=== PATIENT | female | born 1965 | race Caucasian/White ===

== ENCOUNTER → 2017-04-20 | Outpatient (CLI) | payer BC ==
--- NOTE | 2017-04-20 19:30 | WWHP ---
[facility] - HISTORY AND PHYSICAL CHIEF COMPLAINT: Menstrual irregularity during the last 2 months. HPI: This is a 51-year-old, G1, P1 with an LMP of 04/08/2017. She states her periods were regular every month, lasting 3 days up until about 2 months ago. At that time, she missed her period and the period that followed was longer than usual. The next period after that was slightly early, but normal in length and flow. Her is status post vasectomy. She had her last Pap smear done in 09/[address] Kiran's office. She states her Pap smear was normal and she also had a mammogram done at [facility] at that time. She has been experiencing hot flashes over the past 2 years and this is mostly noticed at night. PAST MEDICAL HISTORY: Hypothyroidism and elevated cholesterol. MEDICATIONS: 1. Levothyroxine 112 mcg daily. 2. Pravastatin 40 mg daily. 3. Vitamin D 94815 units twice monthly. ALLERGIES: No known drug allergies. PAST SURGICAL HISTORY: Colonoscopy in 2013. PAST OB HISTORY: One vaginal delivery. 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 SOCIAL HISTORY: She smokes about 2 to 3 cigarettes per day and has about 4 to 8 alcohol-containing drinks per week. She denies drug use. She has been since 1982. She retired from [employer] and now works for an [employer]. FAMILY HISTORY: Maternal grandmother had breast cancer and maternal grandfather had colon cancer. Both parents have hypertension and elevated cholesterol. Her mother has coronary artery disease. REVIEW OF SYSTEMS: She thinks she has gained about 8 pounds over the last year. She denies respiratory, cardiac or GI problems. PHYSICAL EXAM: Blood pressure 147/70, height 5 feet 5 inches, weight 160 pounds, temperature 98, pulse 64. This is a well-developed, well-nourished white female who is alert and oriented x3, in no acute distress. HEENT: Within normal limits. NECK: Supple without mass or thyromegaly. CHEST AND LUNGS: Clear to auscultation. HEART: Regular rate and rhythm. BREASTS: Without mass or discharge. AXILLARY: Negative for adenopathy. BACK: Negative for CVA tenderness. ABDOMEN: Soft, nontender without palpable masses. PELVIC: Normal external genitalia. Cervix and vagina appear normal. There is no unusual discharge or blood noted in the vagina. There is no cervical motion tenderness. The uterus is mid to anterior, nongravid size and nontender. There are no palpable adnexal masses or tenderness. RECTAL: Deferred, since she states she had a rectal exam done earlier this year. EXTREMITIES: Nontender. IMPRESSION: 1. 51-year-old female with a recent menstrual irregularity. Probable perimenopause. 2. Mildly elevated blood pressure. PLAN: 1. Pap smear was deferred, since she states she had one done in 09/2016. We will obtain her Pap smear and mammogram records from Dr. Kiran. 2. Menstrual calendar was given to the patient. She will keep track of her menses. She was instructed to call if she is having greater menstrual irregularity, including frequent menstrual periods within the month, prolonged menses, heavy bleeding or other problems. 3. She will also call if she is having worsening vasomotor symptoms. 4. The patient was advised to have her blood pressure checked on a regular basis and she states she will do this and she will follow up with Dr. Kiran for blood pressure elevations. 5. The patient will have her thyroid tests done through Dr. Kirna as she has done in the past. She understands that if the thyroid is unregulated, this could cause menstrual irregularity as well. 6. She will return next year for her yearly exam and mammogram. 7. Total time spent with the patient 30 minutes. RUDY / OPAL: [id number] /
== END | disposition home or self-care (01) ==
DX: Z01.419 Encounter for gynecological examination (general) (routine) without abnormal findings (principal)

== ENCOUNTER → 2018-01-05 | Outpatient (CLI) | payer BC ==
[2018-01-05 08:40] VITALS: BP 154/72; TEMP 97; BMI 26.6
[2018-01-05 08:50] VITALS: PULSE 75
--- NOTE | 2018-01-05 09:03 | P.HPOB ---
History of Present Illness H&P Date: 01/05/18 Chief Complaint: The patient is here for her routine gynecologic exam and mammogram. This is a 52-year-old with an LMP of 12/05/2017. The patient is without gynecologic complaints. Menses are regular every month. Her 's status post vasectomy. She has had occasional slight hot flashes which are not very bothersome. Review of Systems The patient's weight has been stable over the last year. She denies respiratory , cardiac, or G.I. problems. 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 History of Any Multi-Drug Resistant Organisms: None Reported Additional Past Surgical History / Comment(s): Colonoscopy 2013. Past Psychological History: No Psychological Hx Reported Smoking Status: Current every day smoker (3 cigarettes per day) Past Alcohol Use History: Occasional (3 per week) Past Drug Use History: None Reported Additional History: She has been since 1982. She retired from [employer] and now works for an [employer]. - Past Family History Father Family Medical History: Hyperlipidemia, Hypertension Mother Family Medical History: Hyperlipidemia, Hypertension Additional Family Medical History / Comment(s): Maternal grandmother had breast cancer and maternal grandfather had colon cancer. Medications and Allergies Home Medications Medication Instructions Recorded Confirmed Type Ergocalciferol (Vitamin D2) cap PO WEEKLY 01/05/18 History [Vitamin D2] Levothyroxine Sodium [Synthroid] mcg PO DAILY 01/05/18 History Pravastatin Sodium [Pravachol] mg PO DAILY 01/05/18 History Allergies Allergy/AdvReac Type Severity Reaction Status Date / Time No Known Allergies Allergy Unverified 01/05/18 08:35 Exam - Vital Signs Vital signs: Vital Signs Temp Pulse BP 01/05/18 08:42 75 01/05/18 08:37 97.0 F L 154/72 Intake and Output 01/04/18 01/05/18 01/05/18 22:59 06:59 14:59 Other: Weight 72.575 kg Height 5'5", BMI 26.6. This is a well-developed well-nourished white female who is alert and oriented times 3 in no acute distress. HEENT: Within normal limits. NECK: Supple without mass or thyromegaly. CHEST AND LUNGS: Clear to auscultation. HEART: Regular rate and rhythm. BREASTS: Are without mass or discharge. AXILLARY EXAM: Negative for adenopathy. BACK: Negative for CVA tenderness. ABDOMEN: Soft, nontender, without palpable masses. PELVIC EXAM: Normal external genitalia. Cervix and vagina appear normal. There is no unusual discharge. There is no evidence of prolapse. The uterus is midposition, nongravid size and nontender. There are no palpable adnexal masses or tenderness. RECTAL EXAM: rectovaginal exam is negative for mass or tenderness and is negative for occult blood. EXTREMITIES: Nontender. IMPRESSION: 1. 52 year old female whose is status post vasectomy with normal gynecologic exam. 2. Elevated blood pressure. PLAN: 1. Pap smear was deferred since she had a normal one last year on 09/29/2016 ( [facility]). 2. Screening mammogram will be done today. 3. Osteoporosis prevention was discussed. 4. She has aware of her blood pressure elevation. I've recommended self blood pressure checks on a regular basis and she will follow up at her primary care physician's office if she continues to have blood pressure elevations. 5. Return in one year.
--- NOTE | 2018-01-05 13:39 | MM ---
Reason for exam: screening (asymptomatic). Last mammogram was performed 1 year and 1 month ago. History: Family history of breast cancer in maternal grandmother at age 40. Benign cyst aspiration of the right breast, 2009. Physical Findings: A clinical breast exam by your physician is recommended on an annual basis and results should be correlated with mammographic findings. MG Screening Mammo w CAD Bilateral CC and MLO view(s) were taken. Prior study comparison: November 24, 2016, mammogram, performed at [facility]. November 15, 2015, mammogram, performed at [facility]. There is an upper inner quadrant anterior depth oval mass with circumscribed borders similar to 2016. Benign appearing bilateral calcifications. No suspicious abnormality. No significant changes when compared with prior studies. ASSESSMENT: Benign, BI-RAD 2 RECOMMENDATION: Routine screening mammogram of both breasts in 1 year.
== END | disposition home or self-care (01) ==
LOC: WWCWWP 08:24
PROVIDERS: ATTEND Obstetrics & Gynecology
DX: Z12.31 Encounter for screening mammogram for malignant neoplasm of breast (principal)
CPT/HCPCS: 77067

== ENCOUNTER → 2019-05-09 | Outpatient (CLI) | payer BC ==
[2019-05-09 08:11] VITALS: BP 167/83; PULSE 74; RESP 18; TEMP 97.5; BMI 26.6
--- NOTE | 2019-05-09 08:48 | P.HPOB ---
History of Present Illness H&P Date: 05/09/19 Chief Complaint: The patient is here for her routine gynecologic exam and ma mmogram. This is a 53-year-old with an LMP of 12/07/2018. The patient is without gynecologic complaints. Her is status post vasectomy. Her menstrual periods have gotten slightly more infrequent and were about every 1-2 months until her LMP and now has gone about 5 months without a menstrual period. She has occasional hot flashes at night and can sometimes make it difficult to sle ep. She has not had many hot flashes during the day. Review of Systems The patient has gained 9 pounds over the last year. She denies respiratory, cardiac, or G.I. problems. She recently had a cold, but is pretty much gotten over it. 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 History of Any Multi-Drug Resistant Organisms: None Reported Additional Past Surgical History / Comment(s): Colonoscopy 2013. Past Psychological History: No Psychological Hx Reported Smoking Status: Current every day smoker (2 cigarettes per day) Past Alcohol Use History: Occasional (6 per week) Past Drug Use History: None Reported Additional History: She has been since 1982. She is retired from [employer] and now works for an [employer]. - Past Family History Father Family Medical History: Hyperlipidemia, Hypertension Mother Family Medical History: Hyperlipidemia, Hypertension Additional Family Medical History / Comment(s): Maternal grandmother had breast cancer and maternal grandfather had colon cancer. Medications and Allergies Home Medications Medication Instructions Recorded Confirmed Type Ergocalciferol (Vitamin D2) 1 cap PO WEEKLY 01/05/18 05/09/19 History [Vitamin D2] Levothyroxine Sodium [Synthroid] 25 mcg PO DAILY 01/05/18 05/09/19 History Pravastatin Sodium [Pravachol] 40 mg PO DAILY 01/05/18 05/09/19 History Allergies Allergy/AdvReac Type Severity Reaction Status Date / Time No Known Allergies Allergy Unverified 05/09/19 08:14 Exam Vital Signs Temp Pulse Resp BP Pulse Ox 05/09/19 08:06 97.5 F L 74 18 167/83 94 L Intake and Output 05/08/19 05/09/1905/09/19 22:59 06:59 14:59 Other: Weight 76.657 kg Height 5 feet 5 inches, weight 169 pounds, BMI 28.1. This is a well-developed well-nourished white female who is alert and oriented times 3 in no acute distress. HEENT: Within normal limits. NECK: Supple without mass or thyromegaly. CHEST AND LUNGS: Clear to auscultation. HEART: Regular rate and rhythm. BREASTS: Are without mass or discharge. AXILLARY EXAM: Negative for adenopathy. BACK: Negative for CVA tenderness. ABDOMEN: Soft, nontender, without palpable masses. PELVIC EXAM: Normal external genitalia. Cervix and vagina appear normal with minimal atrophy. There is no unusual discharge. There is no evidence of prolapse. The uterus is midposition, nongravid size and nontender. There are no palpable adnexal masses or tenderness. RECTAL EXAM: Rectovaginal exam is negative for mass or tenderness and is negative for occult blood. EXTREMITIES: Nontender. IMPRESSION: 1. 53-year-old perimenopausal female whose is status post vasectomy with normal gynecologic exam. 2. Recent oligomenorrhea and mild vasomotor symptoms consistent with perimen opause. 3. Elevated blood pressure. PLAN: 1. Pap smear was performed. 2. Self breast awareness was discussed with the patient. 3. Screening mammogram will be done today. 4. We have discussed her elevated blood pressure. The blood pressure has progressively increased at each of her 3 annual visits. I have asked her to check her blood pressure daily since she does have a blood pressure cuff. I have asked her to follow-up with Dr. Elissa oCrmier regarding elevated blood pressures. I have stressed the importance of keeping the blood pressure under good control. 5. He will keep a menstrual calendar and call if she is having menstrual problems or if she has bleeding after 12 months of amenorrhea. 6.Osteoporosis prevention was discussed. I have stressed the importance of adequate calcium, vitamin D and regular exercise. Recommended amounts of calcium and vitamin D were also discussed. 7. She was advised to return in one year for her annual well woman exam.
--- NOTE | 2019-05-10 13:35 | MM ---
Reason for exam: screening (asymptomatic). Last mammogram was performed 1 year and 4 months ago. History: Family history of breast cancer in maternal grandmother at age 40. Benign cyst aspiration of the right breast, 2009. Physical Findings: A clinical breast exam by your physician is recommended on an annual basis and results should be correlated with mammographic findings. MG 3D Screening Mammo W/Cad Bilateral CC and MLO view(s) were taken. Prior study comparison: January 05, 2018, bilateral MG screening mammo w CAD. November 24, 2016, mammogram, performed at [facility]. The breast tissue is heterogeneously dense. This may lower the sensitivity of mammography. There are benign appearing round dystophic calcifications bilaterally. There is chronic nodularity in the right breast decreased in size from 2018. There is no new dominant lesion. ASSESSMENT: Benign, BI-RAD 2 RECOMMENDATION: Routine screening mammogram of both breasts in 1 year.
== END | disposition home or self-care (01) ==
LOC: WWCWWP 07:53
PROVIDERS: ATTEND Obstetrics & Gynecology
DX: Z12.31 Encounter for screening mammogram for malignant neoplasm of breast (principal)
CPT/HCPCS: 77063; 77067

== ENCOUNTER 2020-04-26 06:12 | Day surgery (SDC) | payer BC ==
[2020-04-23 09:51] VITALS: BMI 27.8
[~2020-04-26 06:12] MED LIST: LACTATED RINGERS 1,000 ML IV SCH; LIDOCAINE 1% (10MG/ML) FOR IV START INTRADERMA PRN
[2020-04-26 06:41] VITALS: RESP 18; TEMP 97.5
[2020-04-26] MEDS ORDERED: LACTATED RINGERS 1,000 ML IV ONE (06:42)
[2020-04-26] MEDS ORDERED: PROPOFOL 10 MG/ML 20 ML VIAL IV ONE (07:13)
--- NOTE | 2020-04-26 07:14 | P.GSHP ---
History of Present Illness H&P Date: 04/26/20 Chief Complaint: History of colonic polyps This 54-year-old female presents today for colonoscopy. Patient's. History of colon polyps. She denies any significant GI complaint. Past Medical History Past Medical History: Hyperlipidemia, Thyroid Disorder Additional Past Medical History / Comment(s): Hypothyroid. History of Any Multi-Drug Resistant Organisms: None Reported Additional Past Surgical History / Comment(s): Colonoscopy 2013. Past Anesthesia/Blood Transfusion Reactions: No Reported Reaction Past Psychological History: No Psychological Hx Reported Smoking Status: Current every day smoker Past Alcohol Use History: Occasional Additional Past Alcohol Use History / Comment(s): Has been smoking 20 yrs, 3 cigarettes daily. Past Drug Use History: Marijuana Additional Drug Use History / Comment(s): Occasional use of Marijuana. Aware no use 24 hrs prior to procedure. - Past Family History Father Family Medical History: Hyperlipidemia, Hypertension Mother Family Medical History: Hyperlipidemia, Hypertension Additional Family Medical History / Comment(s): Maternal grandmother had breast cancer and maternal grandfather had colon cancer. Medications and Allergies Home Medications Medication Instructions Recorded Confirmed Type Ergocalciferol (Vitamin D2) 1 cap PO Q30D 01/05/18 04/23/20 History [Vitamin D2] Pravastatin Sodium [Pravachol] 40 mg PO DAILY 01/05/18 04/23/20 History Levothyroxine Sodium 112 mcg PO DAILY 04/23/20 04/23/20 History Multivitamins, Thera [Multivitamin 1 tab PO DAILY 04/23/20 04/23/20 History (formulary)] Allergies Allergy/AdvReac Type Severity Reaction Status Date / Time No Known Allergies Allergy Unverified 04/23/20 09:38 Surgical - Exam Vital Signs Temp Pulse Resp BP Pulse Ox 97.5 F L 78 18 172/78 98 04/26/20 06:40 04/26/20 06:40 04/26/20 06:40 04/26/20 06:40 04/26/20 06:40 - General well developed, well nourished, no distress - Eyes PERRL - ENT normal pinna - Neck no masses - Respiratory normal expansion - Cardiovascular Rhythm: regular - Abdomen Abdomen: soft, non tender Assessment and Plan Assessment: History of colon polyps. We'll perform colonoscopy.
--- NOTE | 2020-04-26 07:33 | P.OP ---
Date of Procedure: 04/26/20 Preoperative Diagnosis: History of colon polyps Postoperative Diagnosis: Rectal polyp Procedure(s) Performed: Colonoscopy Anesthesia: MAC Surgeon: Magdaleno Meyer Pathology: other (Rectal polyp) Condition: stable Disposition: PACU Description of Procedure: The patient's placed on the endoscopy table in the lateral position. She received IV sedation. Digital rectal exam is performed which revealed noted. Flexible colonoscope was then placed patient anus passed throughout the entire colon. The ileocecal valve was visually's. The cecum, ascending and transverse colon appeared normal. Scope was then brought back the descending colon. This appeared normal. Scope scope was brought back and; there was diverticular changes noted. Scope back the rectum and a small hyperplastic polyp was removed with a cold forcep. Scope was withdrawn for patient.
[2020-04-26 07:53] VITALS: BP 163/95; PULSE 53
== END 2020-04-26 08:06 | disposition home or self-care (01) ==
LOC: ORWHC2ENDO 06:12
PROVIDERS: ATTEND Surgery
DX: Z12.11 Encounter for screening for malignant neoplasm of colon (principal); K62.1 Rectal polyp; K57.30 Diverticulosis of large intestine without perforation or abscess without bleeding; Z86.010 Personal history of colon polyps; E03.9 Hypothyroidism, unspecified; E78.5 Hyperlipidemia, unspecified; F17.210 Nicotine dependence, cigarettes, uncomplicated; Z98.890 Other specified postprocedural states; Z82.49 Family history of ischemic heart disease and other diseases of the circulatory system; Z80.0 Family history of malignant neoplasm of digestive organs; Z80.3 Family history of malignant neoplasm of breast; Z79.899 Other long term (current) drug therapy; Z79.890 Hormone replacement therapy
CPT/HCPCS: 88305; 45380; J2704

== ENCOUNTER → 2020-11-14 | Outpatient (CLI) | payer BC ==
[2020-11-14 13:20] VITALS: BP 165/82; PULSE 78; TEMP 98.1
--- NOTE | 2020-11-14 13:42 | P.GSHP ---
History of Present Illness H&P Date: 11/14/20 Chief Complaint: Radiographic abnormality right breast Elmira is a 55-year-old white female who had a routine screening mammogram performed on . No lesions of concern were noted in the left breast. However in the right breast there was a rounded density which was more apparent than on prior exams. An ultrasound was recommended. An ultrasound was performed and a 1.2 cm lesion was noted for which core biopsy was recommended. The patient does not feel anything of concern in either breast. She is not complaining of any nipple discharge or skin changes. She does not report any recent trauma or infection in the breast. She's never had any surgery to the breast. The cyst aspirated in her right breast approximately 10 years ago. This was in the same vicinity. The lesion is seen on mammogram at this time. She is not complaining of breast pain at this time. Caffeine: 1/2 cup coffee/day nicotine: 3 cig./day chocolate: occasional Family History: maternal grandmother: breast cancer in her 40's maternal aunt: breast cancer in her 50's maternal grandfather: colon cancer Hormonal History: menarche: 11 , age at : 21, breast fed: no menopause: 54 BCP: no hormones: no used clomid to get for her daughter Surgical history: [place] teeth Medical history: Hypothyroid High cholesterol Social history: Nicotine: 3 cigarettes per day Alcohol: 4 times/week; rum drugs: none - Constitutional Constitutional: Denies chills, Denies fever - EENT Eyes: denies blurred vision, denies pain Ears: deny: decreased hearing, tinnitus Ears, nose, mouth and throat: Denies headache, Denies sore throat - Breasts Breasts: bilateral: as per HPI - Cardiovascular Cardiovascular: Denies chest pain, Denies shortness of breath - Respiratory Respiratory: Denies cough, Denies 7 - Gastrointestinal Gastrointestinal: Denies abdominal pain, Denies diarrhea, Denies nausea, Denies vomiting - Genitourinary (Female) Genitourinary: Denies dysuria, Denies hematuria - Menstruation Menstruation: Reports postmenopausal - Musculoskeletal Musculoskeletal: Denies myalgias - Integumentary Integumentary: Denies pruritus, Denies rash - Neurological Neurological: Denies numbness, Denies weakness - Psychiatric Psychiatric: Denies anxiety, Denies depression - Endocrine Comment: hypothyroid - Hematologic/Lymphatic Comment: none - Allergic/Immunologic Allergic/Immunologic: Reports seasonal allergies Past Medical History Past Medical History: Hyperlipidemia, Thyroid Disorder Additional Past Medical History / Comment(s): Hypothyroid. History of Any Multi-Drug Resistant Organisms: None Reported Additional Past Surgical History / Comment(s): Colonoscopy 2013. Past Anesthesia/Blood Transfusion Reactions: No Reported Reaction Past Psychological History: No Psychological Hx Reported Smoking Status: Current every day smoker Past Alcohol Use History: Occasional Additional Past Alcohol Use History / Comment(s): Has been smoking 20 yrs, 3 cigarettes daily. Past Drug Use History: Marijuana Additional Drug Use History / Comment(s): Occasional use of Marijuana. Aware no use 24 hrs prior to procedure. - Past Family History Father Family Medical History: Hyperlipidemia, Hypertension Mother Family Medical History: Hyperlipidemia, Hypertension Additional Family Medical History / Comment(s): Maternal grandmother had breast cancer and maternal grandfather had colon cancer. Medications and Allergies Home Medications Medication Instructions Recorded Confirmed Type Ergocalciferol (Vitamin D2) 1 cap PO Q30D 01/05/18 11/14/20 History [Vitamin D2] Pravastatin Sodium [Pravachol] 40 mg PO DAILY 01/05/18 11/14/20 History Levothyroxine Sodium 112 mcg PO DAILY 04/23/20 11/14/20 History Multivitamins, Thera [Multivitamin 1 tab PO DAILY 04/23/20 11/14/20 History (formulary)] Allergies Allergy/AdvReac Type Severity Reaction Status Date / Time No Known Allergies Allergy Unverified 11/14/20 13:15 Surgical - Exam Vital Signs Temp Pulse BP Pulse Ox 98.1 F 78 165/82 96 11/14/20 13:16 11/14/20 13:16 11/14/20 13:16 11/14/20 13:16 BMI 29.2 - General well developed, well nourished, no distress - Eyes normal ocular movement - ENT normal pinna, normal nares - Neck no masses, trachea midline - Respiratory normal expansion, normal respiratory effort, clear to auscultation - Cardiovascular Rhythm: regular Heart Sounds: normal: S1, S2 - Abdomen Abdomen: soft - Integumentary normal turgor - Neurologic no disoriented, no combative - Musculoskeletal normal gait - Psychiatric oriented to time, oriented to person, oriented to place, speech is normal, memory intact breast exam: BRA: 38D inspection: Bilateral grade 2/3 ptosis Palpation: Right breast: Multiple positional exam fibrocystic changes, no dominant masses or nodules of concern, particularly attention paid to the 1 o'clock position no discrete lumps or masses noted Right axilla: No adenopathy of concern Left breast: Multi-positional exam fibrocystic changes no dominant masses or nodules of concern Left axilla: No adenopathy of concern Results Mammogram and ultrasound reviewed with Dr. Zuniga Assessment and Plan Assessment: Impression: 1. Fibrocystic breast changes 2. Abnormal right breast mammogram/ultrasound 3. High cholesterol 4. Hypothyroidism 5. Positive family history of breast cancer Plan: 1. Right breast ultrasound-guided core biopsy/aspiration 2. Follow-up after biopsy CC: Dr. Dodson, Dr. Kiran
== END | disposition home or self-care (01) ==
LOC: WWCWWP 12:50
PROVIDERS: ATTEND Surgery
DX: N60.11 Diffuse cystic mastopathy of right breast (principal); N60.12 Diffuse cystic mastopathy of left breast; R92.8 Other abnormal and inconclusive findings on diagnostic imaging of breast; E03.9 Hypothyroidism, unspecified; E78.00 Pure hypercholesterolemia, unspecified; F17.210 Nicotine dependence, cigarettes, uncomplicated; Z80.3 Family history of malignant neoplasm of breast; E78.5 Hyperlipidemia, unspecified

== ENCOUNTER → 2020-11-27 | Day surgery (SDC) | payer BC ==
[2020-11-27 07:16] VITALS: RESP 16
[2020-11-27 08:28] VITALS: BP 159/89; PULSE 69; TEMP 98.3
--- NOTE | 2020-11-27 11:12 | USB ---
EXAMINATION TYPE: US biopsy breast VAD RT, MG diagnostic mammo RT wo CAD DATE OF EXAM: 11/27/2020 CLINICAL HISTORY: R92.8 ABN MAMMO. TECHNIQUE: Ultrasound guided core biopsy of right 1:00 breast. COMPARISON: NONE FINDINGS: The procedure of ultrasound guided core biopsy was explained to the patient. Benefits, alt ernatives, and risks were discussed. An informed consent was then obtained. The patient was placed in supine positioning for imaging and for the procedure. The overlying skin w as prepped and draped in usual sterile fashion. Lidocaine buffered with bicarbonate was used as anes thetic into the skin and subcutaneous tissue up to area of concern in the right 1:00 breast. A alvino was made with surgical scalpel. Under ultrasound guidance, a 12-gauge vacuum assisted biopsy gun device was used to obtain 4 core antoine ples. Following this, a biopsy clip was left in lesion. The patient tolerated the procedure well without any immediate complication. The patient was kept in the radiology department for short stay after the procedure and then discharged home in stable condi tion. IMPRESSION: Successful, uncomplicated ultrasound guided core biopsy of area of concern in the right 1 :00 breast, full pathology results to follow.
== END ==
LOC: RADUSWWP 07:04
PROVIDERS: ATTEND Surgery
DX: N60.11 Diffuse cystic mastopathy of right breast (principal); N62 Hypertrophy of breast; R92.0 Mammographic microcalcification found on diagnostic imaging of breast
CPT/HCPCS: 88305; 77065; 19083; A4648; J2001

== ENCOUNTER → 2020-12-05 | Outpatient (CLI) | payer BC ==
[2020-12-05 08:30] VITALS: BP 140/87; PULSE 86; RESP 18; TEMP 98.3
--- NOTE | 2020-12-05 08:52 | P.PN ---
Subjective Progress Note Date: 12/05/20 Principal diagnosis: Fibrocystic breast changes Elmira is a 55-year-old white female status post ultrasound-guided core biopsy of the right breast on 5520. Pathology revealed fibrocystic change with fibrosis, attenuated cyst wall with inflammation and scar and focal foreign body type inflammatory reaction. Focal mild usual ductal hyperplasia was present. Focal microcalcification identified. The graft of the ultrasound core biopsy was reviewed with Dr. Greer from radiology. It was felt that the needle went directly into the lesion of concern. This was consistent with a concordant diagnosis. The patient tolerated the procedure without difficulty. She did develop some mild ecchymosis. Objective - Vital Signs Vital signs: Vital Signs Temp 98.3 F 12/05/20 08:28 Pulse 86 12/05/20 08:28 Resp 18 12/05/20 08:28 BP 140/87 12/05/20 08:28 Pulse Ox 98 12/05/20 08:28 Intake & Output 12/04/20 12/05/20 12/05/20 18:59 06:59 18:59 Weight 80.739 kg - Constitutional General appearance: Present: average body habitus - EENT Eyes: Present: EOMI ENT: Present: hearing grossly normal - Respiratory Respiratory: bilateral: CTA - Cardiovascular Rhythm: regular Heart sounds: normal: S1, S2 - Integumentary Integumentary Comment(s): Examination of the biopsy site reveals mild ecchymosis no evidence of infection or hematoma Assessment and Plan Assessment: Impression/plan: 1. Patient status post ultrasound-guided core biopsy right breast pathology benign fibrocystic change Plan: 1. Repeat right breast mammogram and ultrasound in 6 months with physician exam at that time CC: Dr. Ivory Agrawal
== END ==
LOC: WWCWWP 08:21
PROVIDERS: ATTEND Surgery
DX: N60.11 Diffuse cystic mastopathy of right breast (principal); F17.200 Nicotine dependence, unspecified, uncomplicated

== ENCOUNTER → 2021-06-10 | Outpatient (CLI) | payer BC ==
[2021-06-10 09:26] VITALS: BP 147/88; PULSE 83; RESP 16; TEMP 98.2
--- NOTE | 2021-06-10 10:03 | P.HPOB ---
History of Present Illness H&P Date: 06/10/21 Chief Complaint: The patient is here for her routine gynecologic exam. This is a 55-year-old with an LMP of 2018. She is without gynecologic complaints and denies an post menopausal bleeding. Hot flashes have been minimal and not bothersome. The patient had an abnormal mammogram last year and underwent a right breast biopsy in November 2020 which was benign. She was scheduled for a right breast ultrasound with diagnostic mammogram today, but she was not aware that that was scheduled for before this appointment. She will be rescheduled. Review of Systems The patient has gained 10 pounds over the last year. She denies respiratory, cardiac, or G.I. problems. Past Medical History Past Medical History: Hyperlipidemia, Thyroid Disorder Additional Past Medical History / Comment(s): Hypothyroid. 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 History of Any Multi-Drug Resistant Organisms: None Reported Additional Past Surgical History / Comment(s): Colonoscopy 2019(next after 2yr). Past Anesthesia/Blood Transfusion Reactions: No Reported Reaction Past Psychological History: No Psychological Hx Reported Smoking Status: Current every day smoker (2-3 cigarettes per day) Past Alcohol Use History: Occasional (6 per week) Additional Past Alcohol Use History / Comment(s): Has been smoking 20 yrs, 3 cigarettes daily. Past Drug Use History: None Reported Additional History: She has been since 1982. 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 - Past Family History Father Family Medical History: Hyperlipidemia, Hypertension Mother Family Medical History: Hyperlipidemia, Hypertension Additional Family Medical History / Comment(s): Maternal grandmother had breast cancer and maternal grandfather had colon cancer. Medications and Allergies Home Medications Medication Instructions Recorded Confirmed Type Ergocalciferol (Vitamin D2) 1 cap PO Q30D 01/05/18 06/10/21 History [Vitamin D2] Pravastatin Sodium [Pravachol] 80 mg PO DAILY 01/05/18 06/10/21 History Levothyroxine Sodium 112 mcg PO DAILY 04/23/20 06/10/21 History Multivitamins, Thera [Multivitamin 1 tab PO DAILY 04/23/20 06/10/21 History (formulary)] Allergies Allergy/AdvReac Type Severity Reaction Status Date / Time No Known Allergies Allergy Verified 06/10/21 09:19 Exam Vital Signs Temp Pulse Resp BP Pulse Ox 06/10/21 09:20 98.2 F 83 16 147/88 99 Intake and Output 06/09/21 06/10/21 06/10/21 22:59 06:59 14:59 Other: Weight 81.193 kg Height 5 feet 5 inches, weight 179 pounds, BMI 29.8. This is a well-developed well-nourished white female who is alert and oriented times 3 in no acute distress. HEENT: Within normal limits. NECK: Supple without mass or thyromegaly. CHEST AND LUNGS: Clear to auscultation. HEART: Regular rate and rhythm. BREASTS: Are without mass or discharge. AXILLARY EXAM: Negative for adenopathy. BACK: Negative for CVA tenderness. ABDOMEN: Soft, nontender, without palpable masses. PELVIC EXAM: Normal external genitalia with minimal atrophy. Cervix and vagina appear normal with minimal atrophy. There is no unusual discharge. There is no evidence of prolapse. The uterus is midposition, nongravid size and nontender. There are no palpable adnexal masses or tenderness. RECTAL EXAM: Rectovaginal exam is negative for mass or tenderness and is negative for occult blood. EXTREMITIES: Nontender. IMPRESSION: 1. 55-year-old menopausal female with normal gynecologic exam. 2. Previous abnormal mammogram which did require a right breast biopsy done in November 2020 which showed benign fibrocystic changes. PLAN: 1. Pap smear cotest was performed. 2. Self breast awareness was discussed with the patient. We have also discussed symptoms associated with inflammatory breast cancer. 3. She is due for a diagnostic right mammogram with right breast ultrasound. This was rescheduled for approximately 2 weeks. The patient has an order slip for this. 4. Osteoporosis prevention was discussed. I have stressed the importance of adequate calcium, vitamin D and regular exercise. Recommended amounts of calcium and vitamin D were also discussed. 5. She has completed her Covid vaccination series. 6. She was advised to return in one year for her annual well woman exam.
--- NOTE | 2021-06-18 10:52 | P.PN ---
Progress Note - Text Progress Note Date: 06/18/21 OUTPATIENT FOLLOW-UP NOTE TEST(S)/RESULTS: Test results from 06/10/2021 include negative Pap smear and negative high risk HPV testing. METHOD OF NOTIFICATION: The patient was notified by phone. PATIENT COMMENTS: Patient states that her right-sided diagnostic mammogram and ultrasound is scheduled for 07/11/2021. DIAGNOSIS: Negative Pap smear cotest. DISCUSSION: PLAN: She was advised to return in one year for her annual well woman exam.
== END | disposition home or self-care (01) ==
LOC: WWCWWP 09:10
PROVIDERS: ATTEND Obstetrics & Gynecology
DX: Z53.9 Procedure and treatment not carried out, unspecified reason (principal)

== ENCOUNTER → 2021-07-11 | Outpatient (CLI) | payer BC ==
--- NOTE | 2021-07-11 14:10 | MM ---
Reason for exam: additional evaluation requested from prior study. Last mammogram was performed 7 months ago. History: Patient is postmenopausal. Family history of breast cancer in maternal aunt and breast cancer in maternal grandmother at age 40. Benign US biopsy breast VAD RT of the right breast, November 27, 2020. Benign cyst aspiration of the right breast, 2009. Physical Findings: Nurse did not find any significant physical abnormalities on exam. MG 3D Diag Mammo W/Cad RT CC and MLO view(s) were taken of the right breast. Prior study comparison: November 27, 2020, right breast MG diagnostic mammo RT wo CAD. May 09, 2019, bilateral MG 3d screening mammo w/cad. The breast tissue is heterogeneously dense. This may lower the sensitivity of mammography. There are benign appearing round calcifications in the right breast. Previous mammotome biopsy in the right breast. There is no discrete abnormality. These results were verbally communicated with the patient and result sheet given to the patient on 07/11/21. ASSESSMENT: Benign, BI-RAD 2 RECOMMENDATION: Follow-up diagnostic mammogram of both breasts in 5 months. Back on schedule for November 2021.
--- NOTE | 2021-07-11 14:12 | USB ---
Reason for exam: follow-up at short interval from prior study. History: Patient is postmenopausal. Family history of breast cancer in maternal aunt and breast cancer in maternal grandmother at age 40. Benign US biopsy breast VAD RT of the right breast, November 27, 2020. Benign cyst aspiration of the right breast, 2009. US Breast Limited RT Right limited breast ultrasound including focal area of concern, retroareolar and axilla demonstrates a 6 x 6 x 6mm lobular, solid, hypoechoic lesion at 1 o'clock, previous biopsy/smaller in size, biopsy proven benign. These results were verbally communicated with the patient and result sheet given to the patient on 07/11/21. ASSESSMENT: Benign, BI-RAD 2 RECOMMENDATION: Follow-up diagnostic mammogram of both breasts in 5 months. Back on schedule for November 2021.
== END | disposition home or self-care (01) ==
LOC: RADMAMWWP 12:46
PROVIDERS: ATTEND Surgery
DX: R92.8 Other abnormal and inconclusive findings on diagnostic imaging of breast (principal)
CPT/HCPCS: 77061; 77065

== ENCOUNTER → 2021-08-14 | Outpatient (CLI) | payer BC ==
[2021-08-14 16:26] VITALS: BP 149/86; PULSE 71; RESP 16; TEMP 98.5
--- NOTE | 2021-08-14 16:37 | P.PN ---
Subjective Progress Note Date: 08/14/21 Principal diagnosis: Fibrocystic breast changes Elmira is a 56-year-old white female [place] [address]. No lesions of concern were noted in the left breast. However in the right breast there was a rounded density which was more apparent than on prior exams. An ultrasound was recommended. An ultrasound was performed and a 1.2 cm lesion was noted for which core biopsy was recommended. An ultrasound core biopsy was performed on 5521. This revealed fibrocystic change with fibrosis, attenuated cyst wall with inflammation and scar and focal foreign body type of inflammatory reaction. This was felt to be benign and concordant. Repeat radiographic studies of the right breast in 6 months were recommended. The patient on [id number] underwent a right breast mammogram and right breast ultrasound. This was felt to be benign BIRADS 2. Follow-up mammogram of both breasts and 5 months was recommended. The patient does not feel anything of concern in either breast. She is not complaining of any nipple discharge or skin changes. She does not report any recent trauma or infection in the breast. She's never had any surgery to the breast. The cyst aspirated in her right breast approximately 10 years ago. This was in the same vicinity. She is not complaining of breast pain at this time. Caffeine: 1/2 cup coffee/day nicotine: 3 cig./day chocolate: occasional Family History: maternal grandmother: breast cancer in her 40's maternal aunt: breast cancer in her 50's maternal grandfather: colon cancer Hormonal History: menarche: 11 , age at : 21, breast fed: no menopause: 54 BCP: no hormones: no used clomid to get for her daughter Surgical history: Boswell teeth Medical history: Hypothyroid High cholesterol Social history: Nicotine: 3 cigarettes per day Alcohol: 4 times/week; rum drugs: none - Constitutional Constitutional: Denies chills, Denies fever - EENT Eyes: denies blurred vision, denies pain Ears: deny: decreased hearing, tinnitus Ears, nose, mouth and throat: Denies headache, Denies sore throat - Breasts Breasts: bilateral: as per HPI - Cardiovascular Cardiovascular: Denies chest pain, Denies shortness of breath - Respiratory Respiratory: Denies cough - Gastrointestinal Gastrointestinal: Denies abdominal pain, Denies diarrhea, Denies nausea, Denies vomiting - Genitourinary (Female) Genitourinary: Denies dysuria, Denies hematuria - Menstruation Menstruation: Reports postmenopausal - Musculoskeletal Musculoskeletal: Denies myalgias - Integumentary Integumentary: Denies pruritus, Denies rash - Neurological Neurological: Denies numbness, Denies weakness - Psychiatric Psychiatric: Denies anxiety, Denies depression - Endocrine Comment: hypothyroid - Hematologic/Lymphatic Comment: none - Allergic/Immunologic Allergic/Immunologic: Reports seasonal allergies Objective - Vital Signs Vital signs: Vital Signs Temp 98.5 F 08/14/21 16:22 Pulse 71 08/14/21 16:22 Resp 16 08/14/21 16:22 BP 149/86 08/14/21 16:22 Pulse Ox Intake & Output 08/13/21 08/14/21 08/14/21 18:59 06:59 18:59 Weight 77.111 kg - Exam BMI 28.3 - Constitutional General appearance: Present: cooperative - EENT Eyes: Present: EOMI ENT: Present: hearing grossly normal - Neck Neck: Present: normal ROM - Respiratory Respiratory: bilateral: CTA - Cardiovascular Rhythm: regular Heart sounds: normal: S1, S2 - Gastrointestinal General gastrointestinal: Present: soft - Integumentary Integumentary: Present: normal turgor - Musculoskeletal Musculoskeletal: Present: gait normal - Psychiatric Psychiatric: Present: A&O x's 3, appropriate affect, intact judgment & insight - Additional findings Additional findings: Breast Exam: BRA: 38D inspection: Bilateral grade 3 ptosis Palpation: Right breast: Multi-positional exam fibrocystic changes no dominant masses or nodules of concern right axilla: No adenopathy of concern Left breast: Multi-positional exam fibrocystic changes no dominant masses or nodules of concern Left axilla: No adenopathy of concern Assessment and Plan Assessment: Impression: Hypothyroid High cholesterol Fibrocystic breast changes Recent right breast mammogram and ultrasound benign BIRADS 2 Plan: Bilateral mammogram in 5 months with physician exam at that time ultrasound of the right breast in 5 months CC: Jazmyn Agrawal
== END | disposition home or self-care (01) ==
LOC: WWCWWP 16:12
PROVIDERS: ATTEND Surgery
DX: Z53.9 Procedure and treatment not carried out, unspecified reason (principal)

== ENCOUNTER → 2021-12-01 | Outpatient (CLI) | payer BC ==
--- NOTE | 2021-12-01 14:17 | MM ---
Reason for exam: additional evaluation requested from prior study. Last mammogram was performed 5 months ago. History: Patient is postmenopausal. Family history of breast cancer in maternal aunt and breast cancer in maternal grandmother at age 40. Benign US biopsy breast VAD RT of the right breast, November 27, 2020. Benign cyst aspiration of the right breast, 2009. Physical Findings: A clinical breast exam by your physician is recommended on an annual basis and results should be correlated with mammographic findings. MG 3D Diag Mammo W/Cad CELENA Bilateral CC and MLO view(s) were taken. Prior study comparison: October 21, 2020, mammogram, performed at [facility]. The breast tissue is heterogeneously dense. This may lower the sensitivity of mammography. There are benign appearing round calcifications bilaterally. Previous mammotome biopsy in the right breast. There is no discrete abnormality. Results were given to the patient verbally at the time of the exam. ASSESSMENT: Benign, BI-RAD 2 RECOMMENDATION: Routine screening mammogram of both breasts in 1 year.
--- NOTE | 2021-12-01 14:18 | USB ---
Reason for exam: additional evaluation requested from prior study. History: Patient is postmenopausal. Family history of breast cancer in maternal aunt and breast cancer in maternal grandmother at age 40. Benign US biopsy breast VAD RT of the right breast, November 27, 2020. Benign cyst aspiration of the right breast, 2009. Physical Findings: A clinical breast exam by your physician is recommended on an annual basis and results should be correlated with mammographic findings. US Breast Limited RT Technologist: Yulisa Moreno Right limited breast ultrasound including focal area of concern, retroareolar and axilla demonstrates a 0.4 x 0.5 x 0.4cm hypoechoic lesion at 1 o'clock, 3cm from nipple, clip seen, decreased in size from prior and benign biopsy on 11/27/20. No significant new cystic or solid lesion greater than 0.5cm . Results were given to the patient verbally at the time of the exam. ASSESSMENT: Benign, BI-RAD 2 RECOMMENDATION: Routine screening mammogram of both breasts in 1 year.
== END | disposition home or self-care (01) ==
LOC: RADMAMWWP 13:25
PROVIDERS: ATTEND Surgery
DX: R92.8 Other abnormal and inconclusive findings on diagnostic imaging of breast (principal)
CPT/HCPCS: 77062; 77066

== ENCOUNTER → 2022-12-02 | Outpatient (CLI) | payer BC ==
--- NOTE | 2022-12-03 08:51 | MM ---
Reason for Exam: Screening (asymptomatic). Last screening mammogram was performed 12 month(s) ago. Patient History: Menarche at age 11. First Full-Term at age 21. Postmenopausal. 2009, Benign Cyst Aspiration on the right side. 11/27/2020, Benign Core Biopsy on the right side. Maternal grandmother had breast cancer, age 40. Maternal aunt had breast cancer, age 60. Risk Values: Marlene 5 year model risk: 1.5%. NCI Lifetime model risk: 7.9%. Prior Study Comparison: 11/27/2020 Right Diagnostic Mammogram, [facility]. 07/11/2021 Right Diagnostic Mammogram, [facility]. 12/01/2021 Bilateral Diagnostic Mammogram, [facility]. Tissue Density: The breast tissue is heterogeneously dense. This may lower the sensitivity of mammography. Findings: Analyzed By CAD. Mammotome biopsy clip in the right breast is redemonstrated. There are a few small benign-appearing round calcifications scattered throughout the bilateral breasts. Benign appearing bilateral axillary lymph nodes are again seen. There is no suspicious group of microcalcifications or new suspicious mass in either breast. Overall Assessment: Benign, BI-RAD 2 Management: Screening Mammogram of both breasts in 1 year. Some advise bilateral breast ultrasound surveillance in patients with background dense tissue. Patient should continue monthly self-breast exams. A clinical breast exam by your physician is recommended on an annual basis. This exam should not preclude additional follow-up of suspicious palpable abnormalities. Note on Marlene scores and lifetime risk: 1. A Marlene score greater than 3% is considered moderate risk. If this is the case, consider specialist referral to assess eligibility for a risk reducing agent. 2. If overall lifetime risk for the development of breast cancer is 20% or higher, the patient may qualify for future screening with alternating mammogram and breast MRI. Electronically signed and approved by: Speedy Zuniga M.D.
== END | disposition home or self-care (01) ==
LOC: RADMAMWWP 09:00
PROVIDERS: ATTEND Family Medicine
DX: Z12.31 Encounter for screening mammogram for malignant neoplasm of breast (principal); Z80.3 Family history of malignant neoplasm of breast; Z78.0 Asymptomatic menopausal state
CPT/HCPCS: 77063; 77067

== ENCOUNTER → 2023-08-17 | Outpatient (CLI) | payer BC ==
[2023-08-17 09:33] VITALS: BP 162/91; PULSE 74; RESP 17; TEMP 98.1
--- NOTE | 2023-08-17 09:54 | P.HPOB ---
History of Present Illness H&P Date: 08/17/23 Chief Complaint: The patient is here for her routine gynecologic exam. This is a 58-year-old with an LMP of 2019. The patient is without gynecologic complaints. Review of Systems She has lost about 5 pounds over the past 2 years. She denies respiratory, cardiac, or GI problems. Past Medical History Past Medical History: Hyperlipidemia, Thyroid Disorder Additional Past Medical History / Comment(s): Hypothyroid. 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 History of Any Multi-Drug Resistant Organisms: None Reported Additional Past Surgical History / Comment(s): Colonoscopy 2019(next after 2yr). Past Anesthesia/Blood Transfusion Reactions: No Reported Reaction Past Psychological History: No Psychological Hx Reported Smoking Status: Current every day smoker (About 2 cigarettes per day.) Past Alcohol Use History: Occasional (About 6 drinks per week.) Additional Past Alcohol Use History / Comment(s): Has been smoking 20 yrs, 3 cigarettes daily. Past Drug Use History: Marijuana (Infrequent use.) Additional Drug Use History / Comment(s): Occasional use of Marijuana. Aware no use 24 hrs prior to procedure. - Past Family History Father Family Medical History: Congestive Heart Failure (CHF), Hyperlipidemia, Hypertension, Renal Disease Additional Family Medical History / Comment(s): . Mother Family Medical History: Hyperlipidemia, Hypertension Additional Family Medical History / Comment(s): Maternal grandmother had breast cancer and maternal grandfather had colon cancer. Medications and Allergies Home Medications Medication Instructions Recorded Confirmed Type Ergocalciferol (Vitamin D2) 1 cap PO Q30D 01/05/18 08/17/23 History [Vitamin D2] Pravastatin Sodium [Pravachol] 80 mg PO DAILY 01/05/18 08/17/23 History Levothyroxine Sodium 112 mcg PO DAILY 04/23/20 08/17/23 History Multivitamins, Thera [Multivitamin 1 tab PO DAILY 04/23/20 08/17/23 History (formulary)] Allergies Allergy/AdvReac Type Severity Reaction Status Date / Time No Known Allergies Allergy Verified 08/17/23 09:19 Exam Vital Signs Temp Pulse Resp BP Pulse Ox 08/17/23 09:20 98.1 F 74 17 162/91 98 Intake and Output 08/16/23 08/17/23 08/17/23 22:59 06:59 14:59 Other: Weight 78.925 kg Height 5 feet 5 inches, weight 174 pounds, BMI 29.0. This is a well-developed well-nourished white female who is alert and oriented times 3 in no acute distress. HEENT: Within normal limits. NECK: Supple without mass or thyromegaly. CHEST AND LUNGS: Clear to auscultation. HEART: Regular rate and rhythm. BREASTS: Are without mass or discharge. AXILLARY EXAM: Negative for adenopathy. BACK: Negative for CVA tenderness. ABDOMEN: Soft, nontender, without palpable masses. PELVIC EXAM: Normal external genitalia with mild atrophy. Cervix and vagina appear normal mild atrophy. There is no unusual discharge. There is no evidence of prolapse. The uterus is midposition, nongravid size and nontender. There are no palpable adnexal masses or tenderness. RECTAL EXAM:. Rectovaginal exam is negative for mass or tenderness and is negative for occult blood. EXTREMITIES: Nontender. IMPRESSION: 1. 58-year-old menopausal female with normal gynecologic exam. 2. Elevated blood pressure. PLAN: 1. Pap smear was deferred since she had a negative Pap smear cotest on 06/10/2021. 2. Self breast awareness was discussed with the patient. We have also discussed symptoms associated with inflammatory breast cancer. 3. Screening mammogram will be due after 12/03/2023 and the order slip was given to the patient for this. 4. We have discussed her elevated blood pressure. I have recommended that she check her own blood pressures on a regular basis and follow up with her ECP for blood pressure elevations. 5. Osteoporosis prevention was discussed. I have stressed the importance of adequate calcium, vitamin D and regular exercise. Recommended amounts of calcium and vitamin D were also discussed. I have recommended bone density screening since it is been more than 10 years since her last one. This will be included on the mammogram order slip and she'll try to do them both at the same time. 6. She believes she is due for a colonoscopy and we'll arrange this through her PCP. 7. She was advised to return in one year for her annual well woman exam.
== END ==
LOC: WWCWWP 09:02
PROVIDERS: ATTEND Obstetrics & Gynecology
DX: R03.0 Elevated blood-pressure reading, without diagnosis of hypertension (principal); E78.5 Hyperlipidemia, unspecified; E03.9 Hypothyroidism, unspecified; F17.210 Nicotine dependence, cigarettes, uncomplicated; F12.90 Cannabis use, unspecified, uncomplicated; Z78.0 Asymptomatic menopausal state; Z79.890 Hormone replacement therapy; Z80.3 Family history of malignant neoplasm of breast

== ENCOUNTER 2023-11-04 09:08 | Day surgery (SDC) | payer BC ==
[2023-11-02 11:50] VITALS: BMI 28.3
[~2023-11-04 09:08] MED LIST changes: -LACTATED RINGERS 1,000 ML IV SCH
[2023-11-04] MEDS: LACTATED RINGERS 1,000 ML IV SCH (09:49)
[2023-11-04 10:09] VITALS: RESP 16; TEMP 97.6
[2023-11-04] MEDS ORDERED: PROPOFOL 10 MG/ML 20 ML VIAL IV ONE (10:35)
[2023-11-04] MEDS ORDERED: LIDOCAINE 1% INJ 10MG/ML (20 ML MDV) ONE (10:35)
--- NOTE | 2023-11-04 10:38 | P.GSHP ---
History of Present Illness H&P Date: 11/04/23 Chief Complaint: screening colonoscopy this a 4-year-old female who presents today for screening colonoscopy. Patient denies a significant GI complaints. Past Medical History Past Medical History: Hyperlipidemia, Thyroid Disorder Additional Past Medical History / Comment(s): Hypothyroid. History of Any Multi-Drug Resistant Organisms: None Reported Additional Past Surgical History / Comment(s): Colonoscopy. Past Anesthesia/Blood Transfusion Reactions: No Reported Reaction Smoking Status: Current every day smoker - Past Family History Father Family Medical History: Congestive Heart Failure (CHF), Hyperlipidemia, Hypertension, Renal Disease Additional Family Medical History / Comment(s): . Mother Family Medical History: Cancer, Hyperlipidemia, Hypertension Additional Family Medical History / Comment(s): Thyroid cancer. Maternal grandmother had breast cancer and maternal grandfather had colon cancer. Medications and Allergies Home Medications Medication Instructions Recorded Confirmed Type Ergocalciferol (Vitamin D2) 1 cap PO Q30D 01/05/18 11/04/23 History [Vitamin D2] Pravastatin Sodium [Pravachol] 80 mg PO HS 01/05/18 11/04/23 History Levothyroxine Sodium 112 mcg PO QAM 04/23/20 11/04/23 History Multivitamins, Thera [Multivitamin 1 tab PO Q7D 04/23/20 11/04/23 History (formulary)] Allergies Allergy/AdvReac Type Severity Reaction Status Date / Time No Known Allergies Allergy Verified 11/04/23 09:47 Surgical - Exam Vital Signs Temp Pulse Resp BP Pulse Ox 97.6 F 70 16 175/94 98 11/04/23 09:53 11/04/23 09:53 11/04/23 09:53 11/04/23 09:53 11/04/23 09:53 - General well developed, well nourished, no distress - Eyes PERRL - ENT normal pinna - Neck no masses - Respiratory normal expansion - Cardiovascular Rhythm: regular - Abdomen Abdomen: soft, non tender Assessment and Plan Assessment: we will perform screening colonoscopy
--- NOTE | 2023-11-04 10:54 | P.OP ---
Date of Procedure: 11/04/23 Preoperative Diagnosis: ascreening colonoscopy Postoperative Diagnosis: diverticulosis Procedure(s) Performed: colonoscopy Anesthesia: MAC Surgeon: Magdaleno Meyer Pathology: none sent Condition: stable Disposition: PACU Description of Procedure: the patient's placed on the endoscopy table in the lateral position. She received IV sedation. Tdigital rectal exam was performed. Which revealed no ebonized. The flexible colonoscope was then placed patient anus and passed throughout the entire colon. Ileocecal valve was visualized. The cecum, ascending and transverse colon appeared normal. In the descending and sigmoid colon with extensive diverticular changes. The scope was then brought back the rectum this appeared normal. Scope withdrawn for patient.
[2023-11-04 12:16] VITALS: BP 175/73; PULSE 64
== END 2023-11-04 11:36 | disposition home or self-care (01) ==
LOC: ORWHC2ENDO 09:08
PROVIDERS: ATTEND Surgery
DX: Z12.11 Encounter for screening for malignant neoplasm of colon (principal); K57.30 Diverticulosis of large intestine without perforation or abscess without bleeding; E78.5 Hyperlipidemia, unspecified; E03.9 Hypothyroidism, unspecified; F17.200 Nicotine dependence, unspecified, uncomplicated; Z82.49 Family history of ischemic heart disease and other diseases of the circulatory system; Z79.899 Other long term (current) drug therapy; K21.9 Gastro-esophageal reflux disease without esophagitis; Z79.890 Hormone replacement therapy
CPT/HCPCS: 45378; J2001; J2704

== ENCOUNTER → 2023-12-08 | Outpatient (CLI) | payer BC ==
--- NOTE | 2023-12-08 15:58 | BD ---
EXAMINATION TYPE: Axial Bone Density DATE OF EXAM: 12/08/2023 CLINICAL HISTORY: 58 years old Female. ICD-10 CODE: Z78.0 ASYMPTOMATIC MENOPAUSAL STA Height: 5 ft 5 1/2 in Weight: 167 FRAX RISK QUESTIONS: Alcohol (3 or more units per day): no Family History (Parent hip fracture): no Glucocorticoids (More than 3mos): no (Ex: prednisone, prednisolone, methylprednisolone, dexamethasone, and hydrocortisone). History of Fracture in Adulthood: no Secondary Osteoporosis: 1. Type 1 Diabetes: no 2. Hyperthyroidism: no 3. Menopause before 45: no 4. Malnutrition: no 5. Chronic liver disease: no Rheumatoid Arthritis: no Current Tobacco Use: yes RISK FACTORS HISTORY OF: Surgery to Spine/Hip(right/left)/Wrist (right/left): no MEDICATIONS: Thyroid Medications: yes Which medication: synthroid How Lon years Osteoporosis Medications: none EXAM MEASUREMENTS: Bone mineral densitometry was performed using the [employer] System. Bone mineral density as measured about the Lumbar spine is: ----- L1-L4(G/cm2): 1.069 T Score Values are as follows: ----- L1: -1.9 ----- L2: -1.2 ----- L3: -0.6 ----- L4: -0.4 ----- L1-L4: -0.9 Z Score Values are as follows: ----- L1: -1.1 ----- L2: -0.3 ----- L3: 0.3 ----- L4: 0.5 ----- L1-L4: -0.1 baseline Bone mineral density about the R hip (g/cm2): 0.868 Bone mineral density about the L hip (g/cm2): 0.876 T Score values are as follows: -----R Neck: -1.2 -----L Neck: -1.2 -----R Total: -0.5 -----L Total: -0.5 Z Score values are as follows: -----R Neck: -0.2 -----L Neck: -0.1 -----R Total: 0.1 -----L Total: 0.2 baseline FRAX%s: The graph provided illustrates a 7.4 % chance for a major osteoporotic fx and a 0.5 % chance for the hips probability for fx in 10 years time. IMPRESSION: Osteopenia (T Score between -2.5 and -1). There is slightly increased risk of fracture and the patient may be considered for treatment. Re-Screen 2-5 years. NOTE: T-SCORE=SD OF THE YOUNG ADULT MEAN.
--- NOTE | 2023-12-09 18:46 | MM ---
Reason for Exam: Screening (asymptomatic). Last screening mammogram was performed 12 month(s) ago. Patient History: Menarche at age 11. First Full-Term at age 21. Postmenopausal. 2009, Benign Cyst Aspiration on the right side. 11/27/2020, Benign Core Biopsy on the right side. Maternal grandmother had breast cancer, age 40. Maternal aunt had breast cancer, age 60. Risk Values: Marlene 5 year model risk: 1.5%. NCI Lifetime model risk: 7.7%. Prior Study Comparison: 11/24/2016 Screening Mammogram, [facility]. 01/05/2018 Bilateral Screening Mammogram, [facility]. 05/09/2019 Bilateral Screening Mammogram, [facility]. 10/21/2020 Screening Mammogram, [facility]. 11/27/2020 Right Diagnostic Mammogram, [facility]. 07/11/2021 Right Diagnostic Mammogram, [facility]. 12/01/2021 Bilateral Diagnostic Mammogram, [facility]. 12/02/2022 Bilateral MG 3D screening mammo w/cad, [facility]. Tissue Density: The breasts are heterogeneously dense, which may obscure small masses. Findings: Analyzed By CAD. Microclip right breast from prior biopsy. Areas of asymmetric density are unchanged. There is no suspicious group of microcalcifications or new suspicious mass in either breast. Overall Assessment: Benign, BI-RAD 2 Management: Screening Mammogram of both breasts in 1 year. . Patient should continue monthly self-breast exams. A clinical breast exam by your physician is recommended on an annual basis. This exam should not preclude additional follow-up of suspicious palpable abnormalities. Note on Marlene scores and lifetime risk: 1. A Marlene score greater than 3% is considered moderate risk. If this is the case, consider specialist referral to assess eligibility for a risk reducing agent. 2. If overall lifetime risk for the development of breast cancer is 20% or higher, the patient may qualify for future screening with alternating mammogram and breast MRI. Electronically signed and approved by: Maximino Kim M.D. Radiologist
== END | disposition home or self-care (01) ==
LOC: RADMAMWWP 10:08
PROVIDERS: ATTEND Obstetrics & Gynecology
DX: Z12.31 Encounter for screening mammogram for malignant neoplasm of breast (principal); M81.8 Other osteoporosis without current pathological fracture; Z78.0 Asymptomatic menopausal state; Z80.3 Family history of malignant neoplasm of breast
CPT/HCPCS: 77063; 77067; 77080